=== PATIENT | male | born 1940 | race Caucasian/White ===

== ENCOUNTER → 2021-01-16 | Day surgery (SDC) | payer OTHER, MEDICARE ==
[2021-01-15 11:18] VITALS: BMI 36.5
[~2021-01-16] MED LIST: LIDOCAINE HCL/PF 2% SDV 5ML VIAL ONE
[2021-01-16 17:01] VITALS: TEMP 98.4
[2021-01-16 17:43] VITALS: PULSE 65
[2021-01-16 18:09] VITALS: BP 179/79
== END | disposition home or self-care (01) ==
LOC: JASU-SURG 04:21
PROVIDERS: ATTEND Pain Medicine Pain Medicine
DX: Z53.8 Procedure and treatment not carried out for other reasons (principal)

== ENCOUNTER 2021-02-13 04:21 | Day surgery (SDC) | payer OTHER, MEDICARE ==
[2021-02-12 10:45] VITALS: BMI 36.5
[2021-02-13] MEDS ORDERED: LIDOCAINE HCL 1% PRESERVATIVE FREE - 30ML VIAL IJ ONE (14:40)
[2021-02-13 17:07] VITALS: BP 170/80; PULSE 55; TEMP 97.5
== END 2021-02-13 17:00 | disposition home or self-care (01) ==
LOC: JASU-SURG 04:21
PROVIDERS: ATTEND Pain Medicine Pain Medicine
PROC: 01HY3MZ Insertion of Neurostimulator Lead into Peripheral Nerve, Percutaneous Approach (ICD-10-PCS; principal; 2021-02-13 14:30)
DX: G89.4 Chronic pain syndrome (principal)
CPT/HCPCS: 64555; C1778

== ENCOUNTER 2022-08-03 13:52 | Emergency (ER) | payer OTHER, MEDICARE ==
[2022-08-03 14:01] VITALS: BP 109/40; PULSE 66; RESP 18; TEMP 98.7; BMI 36.6
== END 2022-08-03 16:15 | disposition home or self-care (01) ==
LOC: JER 13:52
DX: M79.89 Other specified soft tissue disorders (principal)
CPT/HCPCS: 93970-TC; 99283-25